=== PATIENT | female | born 1965 | race African-American/Black ===

== ENCOUNTER 2021-05-01 00:21 | Emergency (ER) | payer MEDICARE, MEDICAID ==
[~2021-05-01] VITALS: Ht 165.1 cm; Wt 91.0 kg
[2021-05-01] MEDS ORDERED: KETOROLAC 30MG/ML VIAL IV STA (00:45)
[2021-05-01] MEDS ORDERED: SODIUM CHLORIDE 0.9% 1,000 ML IV ONE (00:45)
[2021-05-01 01:11] LABS: BASOPHILS % 0.7 % (0.0-2.0); EOSINOPHILS % 3.9 % (0.0-5.0); HEMATOCRIT. 36.9 % (36.0-48.0); HEMOGLOBIN. 12.7 g/dL (12.0-16.0); LYMPHOCYTES % 42.3 % (20.0-50.0); MEAN CORPUSCULAR HEMOGLOBIN 29.9 pg (28.0-32.0); MEAN CORPUSCULAR VOLUME 86.6 fL (81.0-99.0); MEAN PLATELET VOLUME 9.3 fl (7.4-10.4); MONOCYTES % 7.5 % (2.0-8.0); NEUTROPHILS % 45.6 % (40.0-76.0); PLATELET 171 x1000/uL (130-400); RED BLOOD CELL COUNT 4.27 mill/uL (4.2-5.4); RED CELL DISTRIBUTION WIDTH 14.1 % (11.6-14.6)
[2021-05-01 01:19] LABS: CHLORIDE 102 mEq/L (98-107)
[2021-05-01 01:23] LABS: ETHANOL BLOOD 43 mg/dL
[2021-05-01] MEDS ORDERED: MORPHINE SULFATE 4 MG/ML CPJ (NOT FOR IM USE) IV STA (05:25)
[2021-05-01] MEDS ORDERED: ONDANSETRON HCL 4MG/2ML INJ IV STA (05:25)
[2021-05-01 06:00] VITALS: BP 159/91
== END 2021-05-01 06:25 | disposition home or self-care (01) ==
LOC: ER 00:21
DX: R07.89 Other chest pain (principal); K86.1 Other chronic pancreatitis; E11.9 Type 2 diabetes mellitus without complications; I10 Essential (primary) hypertension; Z90.49 Acquired absence of other specified parts of digestive tract
CPT/HCPCS: 36415; 74176; 80053; 80320; 83690; 84484; 85025; 93005; 96374; 99285; J1885; J2270; J7030; G0480